=== PATIENT | male | born 1995 | race Caucasian/White ===

== ENCOUNTER 2016-08-14 23:21 | Emergency (ER) | payer OTHER ==
[~2016-08-14] VITALS: Ht 172.7 cm; Wt 76.5 kg
[2016-08-14 23:29] VITALS: Ht 172.7 cm; Wt 76.5 kg
[2016-08-15] MEDS ORDERED: ONDANSETRON (ODT) 4 MG TAB ODT STA (02:54)
[2016-08-15] MEDS ORDERED: KETOROLAC 30 MG INJ IM STA (02:54)
[2016-08-15] MEDS ORDERED: FIORICET PO (03:12)
[2016-08-15] MEDS ORDERED: ONDA4TAB14 PO (03:12)
--- NOTE | 2016-08-15 03:16 | ERD ---
ER Documentation Chief Complaint Date/Time DATE: 08/15/16 TIME: 03:12 Chief Complaint headache x 1 day HPI Patient is a 21-year-old male who presents to the emergency department with a headache 1 day. Patient states the headache is primarily in the right side of his head. The pain originates in the parietal region and radiates to his temporal region. Patient states that the pain has been gradually getting worse. Patient denies sudden onset of headache. He states that there is a sharp pain behind his right eye. Patient reports photophobia. Patient denies any fevers, chills, vomiting, vision or loss of consciousness. Patient is feeling nauseous. Patient has not tried any medications at home. Patient denies any fall or trauma. Patient denies any neck stiffness, chest pain or shortness of breath. Patient does report previous history of headaches. ROS All systems reviewed and are negative except as per history of present illness. Medications Home Meds Active Scripts Ondansetron (Ondansetron Odt) 4 Mg Tab.rapdis, 4 MG PO Q6H Y for NAUSEA AND/OR VOMITING, #10 TAB Prov:MAYA JUAREZ PA-C 08/15/16 Acetamin/Butalbital/Caffeine* (Fioricet*) [id number] Tab, 1 TAB PO Q6H Y for PAIN, #12 TAB Prov:MAYA JUAREZ PA-C 08/15/16 Allergies Allergies: Coded Allergies: No Known Allergy (Unverified , 08/14/16) PMhx/Soc History of Surgery: No Anesthesia Reaction: No Hx Neurological Disorder: No Hx Respiratory Disorders: No Hx Cardiac Disorders: No Hx Psychiatric Problems: No Hx Miscellaneous Medical Probl: No Hx Alcohol Use: No Hx Substance Use: No Hx Tobacco Use: No Smoking Status: Never smoker Physical Exam Vitals Vital Signs Date Time Temp Pulse Resp B/P Pulse Ox O2 Delivery O2 Flow Rate FiO2 08/14/16 23:29 98.2 67 20 129/68 100 Physical Exam GENERAL: Well-developed, well-nourished male. Appears in no acute distress HEAD: Normocephalic, atraumatic. No deformities or ecchymosis. No scalp hematomas. EYE: Pupils equal, round, and reactive to light. EOMs intact. No conjunctival erythema. No scleral icterus. No eye discharge. ENT: External ear without any masses or tenderness. Auditory canals clear bilaterally. TM visualized bilaterally, non-erythematous, non-bulging. Nasal mucosa pink with no discharge. Oropharynx is pink without any tonsillar erythema or exudates. No uvula deviation. No kissing tonsils. NECK: Supple. No lymphadenopathy or thyromegaly. No meningismus. No JVD. No bruits. Trachea midline. LUNG: Clear to auscultation bilaterally. No rhonchi, wheezing, rales or coarse breath sounds. HEART: Regular rate and rhythm. No murmurs, rubs or gallops. ABDOMEN: Soft, nontender, and nondistended. Positive bowel sounds in all four quadrants. No rebound tenderness, no guarding. (-) McBurney's point tenderness. No CVA tenderness. BACK: No midline tenderness. EXTREMITES: Equal pulses bilaterally. No peripheral clubbing, cyanosis or edema. No unilateral leg swelling. NEUROLOGIC: Alert and oriented x3, cooperative. Mood and affect appropriate to situation. Cranial nerves II through XII are grossly intact. Normal speech. Motor exam: 5/5 strength in upper and lower extremities. Sensory exam: Sensation intact to light touch on all four extremities. Cerebellar function exam:. No dysmetria on [id number] Steady gait. No pronator drift. Negative Brudzinski sign. Negative Kernig sign. SKIN: Normal color. Warm and dry. No rashes or lesions. Results 24 hrs Current Medications Medications (Trade) Dose Ordered Sig/Caitlin Route PRN Reason Start Time Stop Time Status Last Admin Dose Admin Ketorolac Tromethamine (Toradol) 30 mg ONCE STAT IM 08/15/16 02:54 08/15/16 02:56 DC 08/15/16 03:08 Ondansetron HCl (Zofran Odt) 4 mg ONCE STAT ODT 08/15/16 02:54 08/15/16 02:56 DC 08/15/16 03:12 Procedures/[facility] MEDICAL DECISION MAKING: This is a 21 year old male who presents with a headache x 1 day. Vital signs were reviewed. Patient was afebrile. Patient is not hypoxic. Patient stated that the headache has been getting gradually worse. Patient denied sudden thunderclap onset. Patient denied any trauma or falls. Patient denied any fevers , neck stiffness, jaw claudication, visual changes or LOC. Full neurological exam was normal. Patient was given Toradol IM and Zofran here in the emergency department. Patient reported improvement in headache prior to discharge. Given these findings, the patients presentation is most consistent with migraine vs tension headache. I have a much lower clinical concern for intracranial hemorrhage, meningitis, encephalitis, CO poisoning, temporal arteritis, benign intracranial hypertension, intracranial mass, glaucoma, sinusitis, cluster headache. PRESCRIPTIONS: Fiorcet, Zofran DISCHARGE: At this time, patient is stable for discharge and outpatient management. I have encouraged the patient to hydrate well. I have instructed the patient to follow- up with his/her primary care physician in 1-2 days. If symptoms persist, patient may need to see a neurologist for further examinations and testing. I have instructed the patient to promptly return to the ER at any time for any new or worsening symptoms including increased increased pain, fever, nausea, vomiting, numbness, neck stiffness, visual changes, weakness or LOC. The patient and/or family expressed understanding of and agreement with this plan. All questions were answered. Home care instructions were provided. Departure Diagnosis: Primary Impression: Headache Headache type: unspecified Headache chronicity pattern: unspecified pattern Intractability: not intractable Qualified Code: R51 - Nonintractable headache, unspecified chronicity pattern, unspecified headache type Condition: Stable Patient Instructions: Self-Care for Headaches Referrals: NO PRIMARY,CARE PHYSICIAN (PCP) COMMUNITY CLINICS YOU HAVE RECEIVED A MEDICAL SCREENING EXAM AND THE RESULTS INDICATE THAT YOU DO NOT HAVE A CONDITION THAT REQUIRES URGENT TREATMENT IN THE EMERGENCY DEPARTMENT. FURTHER EVALUATION AND TREATMENT OF YOUR CONDITION CAN WAIT UNTIL YOU ARE SEEN IN YOUR DOCTORS OFFICE WITHIN THE NEXT 1-2 DAYS. IT IS YOUR RESPONSIBILITY TO MAKE AN APPOINTMENT FOR FOLOW-UP CARE. IF YOU HAVE A PRIMARY DOCTOR --you should call your primary doctor and schedule an appointment IF YOU DO NOT HAVE A PRIMARY DOCTOR YOU CAN CALL OUR PHYSICIAN REFERRAL HOTLINE AT IF YOU CAN NOT AFFORD TO SEE A PHYSICIAN YOU CAN CHOSE FROM THE FOLLOWING [facility] [address] [facility] [address] [facility]. [facility] [address] [facility] [address] [facility]. [facility] [address] [facility]. [facility]. [address] [facility]. [facility] YOU HAVE RECEIVED A MEDICAL SCREENING EXAM AND THE RESULTS INDICATE THAT YOU DO NOT HAVE A CONDITION THAT REQUIRES URGENT TREATMENT IN THE EMERGENCY DEPARTMENT. FURTHER EVALUATION AND TREATMENT OF YOUR CONDITION CAN WAIT UNTIL YOU ARE SEEN IN YOUR DOCTORS OFFICE WITHIN THE NEXT 1-2 DAYS. IT IS YOUR RESPONSIBILITY TO MAKE AN APPOINTMENT FOR FOLOW-UP CARE. IF YOU HAVE A PRIMARY DOCTOR --you should call your primary doctor and schedule and appointment IF YOU DO NOT HAVE A PRIMARY DOCTOR YOU CAN CALL OUR PHYSICIAN REFERRAL HOTLINE AT . IF YOU CAN NOT AFFORD TO SEE A PHYSICIAN YOU CAN CHOSE FROM THE FOLLOWING [facility] INSTITUTIONS: [facility] [address] [place] [address] [facility] [address] [place] [address] [facility] [address] [place] [address] Additional Instructions: Call your primary care doctor TOMORROW for an appointment during the next 1-2 days.See the doctor sooner or return here if your condition worsens before your appointment time. Patient may need to see a neurologist if symptoms persist. MAYA JUAREZ PA-C Aug 15, 2016 03:15
== END 2016-08-15 04:00 | disposition home or self-care (01) ==
LOC: FTE 23:21
DX: R51 Headache (principal); R11.0 Nausea
CPT/HCPCS: 96372; J1885; Z7502; Z7610